=== PATIENT | male | born 1940 | race Caucasian/White ===

== ENCOUNTER 2018-12-05 17:35 | Inpatient (IN) | payer MEDICAID, MEDICARE ==
[2018-12-05] MEDS ORDERED: Sodium Chloride 0.9% 10 ML Syringe FLUSH PRN (19:13)
[2018-12-05] MEDS ORDERED: Piperacillin/Tazobactam 4.5 GM in Sodium Chloride 0.9% 100 ML IV SCH (19:15)
[2018-12-05] MEDS ORDERED: Sodium Chloride 0.9% 250 ML IV ONE (19:15)
[2018-12-05] MEDS ORDERED: Piperacillin/Tazobactam 3.375 GM in Sodium Chloride 0.9% 50 ML IV ONE (19:45)
[2018-12-05 20:25] LABS: ANION GAP 11.5 mmol/L (5-15); CHLORIDE,CL 104 mmol/L (98-115); SODIUM,NA 137 mmol/L (136-145)
[2018-12-06] MEDS ORDERED: Piperacillin/Tazobactam 3.375 GM in Sodium Chloride 0.9% 50 ML IV SCH (04:00)
--- NOTE | 2018-12-06 08:03 | HP ---
12/05/2018 PATIENT NAME: CLEMENT CHATMAN TIME: 9:30 p.m. PATIENT PROFILE: The patient is an 78-year-old gentleman from [place], [place]. He was initially seen in the clinic by Miranda Resendiz RN/[employer], yesterday because of abdominal pain, fever, and chills. The patient came back to see her today. The patient was initially reluctant to do any tests or come into the hospital. However, he agreed to having an abdominal CAT scan being performed. The abdominal CAT scan showed a common bile duct stone and slight dilatation of the duct to 1.1 cm. There was minimal intrahepatic biliary ductal dilatation. The patient also has a left 1.3 cm left renal mass, which had been unchanged from before from the date of 02/2018. In addition, the patient has a 2.6 x 2.6 enhancing soft tissue mass in the base of the cecum, which appears to extend to the overlying anterior abdominal wall musculature. This is suspicious for malignancy. As the patient was running a fever with chills and possibly getting septic, he was strongly advised to come into the hospital and he finally consented to coming in today. PAST MEDICAL HISTORY: The patient's past history includes: 1. Hypertension. 2. Coronary artery disease with stent placement recently last year. 3. Also COPD, bronchospasm, and mild ischemic coronary artery disease and diastolic dysfunction. 4. He also has a history of hypercholesteremia. PHYSICAL EXAMINATION: GENERAL: The patient was admitted. He was alert. He was seen in his room. He remained alert and well oriented. He has slight jaundice noted. VITAL SIGNS: Revealed a blood pressure of 154/69, height 5 feet 4 inches, weight 190 pounds, oxygen saturation is 97%, and respiratory rate was 20. HEENT: The patient's head was normocephalic. Eyes reveal a mild jaundice. ENT, negative. HEART: Stable rhythm. Grade 1/6 systolic murmur in the apex. LUNGS: Clear to percussion and auscultation. ABDOMEN: Soft, somewhat obese, and nontender. No masses are palpable. Femoral pulses are good. EXTREMITIES: Normal. FINAL DIAGNOSES: 1. Suspect acute cholangitis with choledocholithiasis. 2. History of a possible mass of the right colon, question colon malignancy. 3. History of mass of the left kidney, question renal cell carcinoma. 4. History of coronary artery disease, stable. 5. Hypertension, stable. 6. History of ischemic cardiac disease and history of diastolic dysfunction, stable at this time. 7. Hypercholesteremia, stable. PLAN: The plan will be to treat him with IV antibiotics of Zosyn 3.375 g every 6 hours. Clear liquids by mouth. Repeat liver function tests in a.m. and watch carefully for any progression of the liver function tests. Once his infection and cholangitis subsides, he may be a candidate for ERCP or retrieval of the common bile duct stone. /[id number]/MODL
[2018-12-06] MEDS: Piperacillin/Tazobactam/Dext 3.375 GM in Premix Bag 1 BAG IV SCH ×3 (09:50→21:57)
--- NOTE | 2018-12-06 10:35 | PCM.PN ---
- General Info Date of Service: 12/06/18 Functional Status: Reports: Pain Controlled, Tolerating Diet, Ambulating. Denies: New Symptoms - Review of Systems General: Denies: Fever HEENT: Reports: No Symptoms Pulmonary: Reports: No Symptoms Cardiovascular: Reports: No Symptoms Gastrointestinal: Reports: Decreased Appetite. Denies: Abdominal Pain, Diarrhea , Nausea Genitourinary: Denies: Incontinence Musculoskeletal: Reports: No Symptoms Skin: Denies: Jaundice, Pruritis Neurological: Denies: Confusion, Dizziness Psychiatric: Reports: No Symptoms - Patient Data Vitals - Most Recent: Last Vital Signs Temp 97.3 F 12/06/18 07:00 Pulse 57 L 12/06/18 07:00 Resp 16 12/06/18 07:00 BP 140/64 12/06/18 07:00 Pulse Ox 92 L 12/06/18 07:00 Weight - Most Recent: 189 lb 5 oz I&O - Last 24 Hours: Intake & Output 12/05/18 12/06/18 12/06/18 22:59 06:59 14:59 Intake Total 370 175 Balance 370 175 Lab Results Last 24 Hours: Laboratory Results - last 24 hr 12/05/18 12/05/18 Range/Units 19:50 19:50 WBC 5.91 (5.00-10.00) 10^3/uL RBC 4.09 L (4.50-6.00) 10^6/uL Hgb 12.6 L (13.0-17.0) g/dL Hct 37.9 L (40.0-52.0) % MCV 92.7 H (82.0-92.0) fL MCH 30.8 (27.0-31.0) pg MCHC 33.2 (32.0-36.0) g/dL RDW 14.9 H (11.5-14.5) % Plt Count 199 (150-400) 10^3/uL MPV 10.5 H (7.4-10.4) fL Immature Gran % (Auto) 0.2 (0.0-5.0) % Neut % (Auto) 67.5 (50.0-70.0) % Lymph % (Auto) 19.1 L (20.0-40.0) % [place] % (Auto) 11.3 H (2.0-8.0) % Eos % (Auto) 1.4 (1.0-3.0) % Baso % (Auto) 0.5 (0.0-1.0) % Immature Gran # (Auto) 0.01 (0.00-0.50) 10^3/uL Neut # (Auto) 3.99 (2.50-7.00) 10^3/uL Lymph # (Auto) 1.13 (1.00-4.00) 10^3/uL [place] # (Auto) 0.67 (0.10-0.80) 10^3/uL Eos # (Auto) 0.08 L (0.10-0.30) 10^3/uL Baso # (Auto) 0.03 (0.00-0.10) 10^3/uL Sodium 137 (136-145) mmol/L Potassium 4.2 (3.3-5.3) mmol/L Chloride 104 (98-115) mmol/L Carbon Dioxide 25.7 (21.0-32.0) mmol/L Anion Gap 11.5 (5-15) mmol/L BUN 15 (6-25) mg/dL Creatinine 1.08 (0.51-1.17) mg/dL Est Cr Clr Drug Dosing 45.68 mL/min Estimated GFR (MDRD) > 60 mL/min Glucose 96 (75 - 99) mg/dL Calcium 9.1 (8.7-10.3) mg/dL Total Bilirubin 0.8 (0.2-1.0) mg/dL Direct Bilirubin 0.3 H (0.0-0.2) mg/dL Indirect Bilirubin 0.5 mg/dL AST 85 H (15-37) U/L ALT 224 H (12-78) U/L Alkaline Phosphatase 273 H (46-116) IU/L Total Protein 7.3 (6.4-8.2) g/dL Albumin 2.95 L (3.00-4.80) g/dL Globulin 4.35 Albumin/Globulin Ratio 0.67 Med Orders - Current: Current Medications Piperacillin/Tazobactam/ (Dextrose 3.375 gm/ Premix) 50 mls @ 100 mls/hr IV Q6H [facility] Last Admin: 12/06/18 09:50 Dose: 100 mls/hr Sodium Chloride (Saline Flush) 10 ml FLUSH Q8HR PRN PRN Reason: keep vein open Discontinued Medications Piperacillin Sod/Tazobactam (Sod 4.5 gm/ Sodium Chloride) 100 mls @ 200 mls/hr IV Q6H [facility] Last Admin: 12/06/18 00:02 Dose: Not Given Sodium Chloride (Normal Saline) 250 mls @ 50 mls/hr IV DAILY ONE Stop: 12/06/18 00:14 Last Admin: 12/05/18 21:27 Dose: 50 mls/hr Piperacillin Sod/Tazobactam (Sod 3.375 gm/ Sodium Chloride) 50 mls @ 100 mls/ hr IV ONETIME ONE Stop: 12/05/18 20:14 Last Admin: 12/05/18 21:27 Dose: 100 mls/hr Piperacillin Sod/Tazobactam (Sod 3.375 gm/ Sodium Chloride) 50 mls @ 100 mls/ hr IV Q6H [facility] Last Admin: 12/06/18 04:49 Dose: 100 mls/hr - Exam Quality Assessment: No: Supplemental Oxygen General: Alert, Oriented HEENT: No: Scleral Icterus Neck: Supple, No JVD Lungs: Clear to Auscultation, Normal Respiratory Effort Cardiovascular: Regular Rate, Regular Rhythm GI/Abdominal Exam: Other (reduced bowel tones. ). No: Distended (Male) Exam: No Hernia Back Exam: No: CVA Tenderness (L), CVA Tenderness (R) Extremities: No Pedal Edema Peripheral Pulses: 2+: Radial (L), Radial (R) Skin: Dry Neurological: No New Focal Deficit Psy/Mental Status: Alert, Normal Affect, Normal Mood - Problem List Review Problem List Initiated/Reviewed/Updated: Yes - Plan Plan:: History: This 78 year old male was seen by Miranda Resendiz OUTSIDE CUTTER when he came in c/o chills along with hot flashes and felt feverish. Initial presentation was highly suggested of acute cholangitis however he was quite obstinate about being admitted however eventually he did capitulate and came into the hospital. He was started on IV antibiotics. He denied any jaundice N/V/D but did note some urinary frequency along with lower extremity edema he contribute to not taking his Lasix past 48 hours prior. The patient noted that he recently completed a course of antibiotics. He was seen in the clinic on 11/11/18 by Nati Leos PA-C, with generalized abdominal pain. CBC at that time with a mildly increased WBC at 13.3. BMP with creatinine 1.44, GFR 47. Abdominal x-ray was done with nonspecific bowel gas pattern without evidence of obstruction or ileus. He had a prior CT scan done 03/17 which was reviewed noting diverticulosis. The patient was started on Augmentin for question of possible diverticulitis and recommended for a CT if no improvement was noted. The patient completed the course of Augmentin with resolution of his symptoms. In follow-up November 27 with noted resolution of symptoms. Clinic findings demonstrated markedly elevated liver function Alkaline phosphatase- 306, AST- 251, ALT-340, Bilirubin 1.5--all are trending down today Yesterday's concerns were CT of the abdomen which demonstrated dilatation of CBD favoring choledocholithiasis, other concerning signs demonstrated 2.6 x 2.6 cm soft tissue mass (which is malignant in suspect) at the base of his cecum which appears to extend into the overlying right anterior abdominal wall musculature. Primary hospital problems --Rule out acute cholangitis, no jaundice or fever, resolved abdominal pain --Choledocholithiasis with Elevated aminotransferases, trending down, Chronic problems HTN, continue with Coreg, Losartan Norvasc Hydralazine HLD- Holding statins Aortic stenosis, S/P TAVR- on Plavix and ASA CAD- Lifelong DAPT HFpEF, diastolic, ECHO 04/09/1818. Grade 1 LV diastolic dysfunction. EF 60%. Was off diuretic therapy past 48 hours CKD stage 3- Baseline Serum Creatinine 1.4. --Renal mass, concerning for renal cell carcinoma- noted on CT 01/08/18. Follow- up with IR on 04/09/18. Patient has elected for watching area with follow-up CT versus intervention. --soft tissue domicile mass concerning for malignancy, will need outpatient workup Overall plan today With favorable trending liver enzymes and a total bili negative low without fever jaundice or no abdominal pain and stable vital signs we'll continue to trend aminotransferases. Continue with antibiotics. Monitor for jaundice abdominal pain, monitor for fever or any hemodynamic instability, advance diet.
[2018-12-06] MEDS ORDERED: Nitroglycerin 0.4 MG Tab.SL SL PRN (12:44)
[2018-12-06] MEDS ORDERED: Albuterol 8 GM Inhaler INH PRN (12:44)
[2018-12-06] MEDS: hydrALAZINE 50 MG Tab PO SCH ×2 (15:21→21:59)
[2018-12-06] MEDS: Carvedilol 6.25 MG Tab PO SCH (22:00)
[2018-12-07] MEDS: Piperacillin/Tazobactam/Dext 3.375 GM in Premix Bag 1 BAG IV SCH ×2 (05:08→11:34)
[2018-12-07] MEDS: hydrALAZINE 50 MG Tab PO SCH (05:09)
[2018-12-07] MEDS ORDERED: Aspirin 81 MG Tab.EC PO SCH (08:00)
[2018-12-07] MEDS: Carvedilol 6.25 MG Tab PO SCH (08:42)
[2018-12-07] MEDS ORDERED: Furosemide 20 MG Tab PO SCH (09:00)
[2018-12-07] MEDS ORDERED: amLODIPine 5 MG Tab PO SCH (09:00)
[2018-12-07] MEDS ORDERED: Losartan 50 MG Tab PO SCH (09:00)
[2018-12-07] MEDS ORDERED: Clopidogrel 75 MG Tab PO SCH (09:00)
--- NOTE | 2018-12-07 10:49 | PCM.DCSUM1 ---
Discharge Summary - Hospital Course Brief History: This is an 78 year old male who presented to the [facility] with concerns of chills. Had been experiencing hot and cold flashes for the past two days. Was unable to express any other symptoms. Lab work-up was notable for alk phos 306, AST 251, ALT 340, total bilirubin 1.5. CT abd/pelvis showed common bile duct dilatation with filling defect likely representing choledocholith, unchanged 1.3 cm left interpolar renal lesion-likely representing small renal cell carcinoma, and a new 2.6 x 2.6 cm enhancing soft tissue mass in the base of the cecum which appears to extend into the overlying right anterior abdominal wall musculature-concerning for malignancy. He was resistant to hospital admission at first, but did concede and was admitted for IV antibiotics and further monitoring. - Discharge Data Discharge Date: 12/07/18 Discharge Disposition: Home, Self-Care 01 Condition: Stable - Patient Instructions Diet: No Alcoholic Beverages Diet, Other: Low fat, low cholesterol Activity: As Tolerated Driving: May Drive Today Showering/Bathing: May Shower Notify Provider of: Fever, Increased Pain, Nausea and/or Vomiting (abdominal pain, yellowing of the skin or eyes) Other/Special Instructions: I have placed a referral to [facility] for the probable stone in your bile duct. I will place a referral order to [facility] On[facility] regarding the mass at the start of the large intestine. - Discharge Plan *PRESCRIPTION DRUG MONITORING PROGRAM REVIEWED*: Not Applicable *COPY OF PRESCRIPTION DRUG MONITORING REPORT IN PATIENT [place]: Not Applicable Prescriptions/Med Rec: Amoxicillin/Potassium Clav [Augmentin 875-125 Tablet] 1 each PO BID 3 Days #6 tablet Home Medications: Home Meds Aspirin [Halfprin] 81 mg PO BRK 04/29/15 [History] Carvedilol [Coreg] 6.25 mg PO BID 04/29/15 [History] Losartan [Cozaar] 100 mg PO DAILY 04/29/15 [History] Albuterol [Proventil HFA] 2 puff INH QID PRN 02/18/16 [History] Furosemide 20 mg PO DAILY 02/18/16 [History] Amoxicillin 2,000 mg PO DAILY PRN 12/05/18 [History] Clopidogrel Bisulfate [Clopidogrel] 75 mg PO DAILY 12/05/18 [History] Nitroglycerin [Nitrostat] 0.4 mg SL ASDIRECTED PRN MDD 3 12/05/18 [History] amLODIPine [Norvasc] 10 mg PO DAILY 12/05/18 [History] hydrALAZINE [Apresoline] 25 mg PO Q8H 12/05/18 [History] Amoxicillin/Potassium Clav [Augmentin 875-125 Tablet] 1 each PO BID 3 Days #6 tablet 12/07/18 [Rx] Referrals: Jean Paul Cohen MD [Primary Care Provider] - 12/11/18 (Please call the [facility] on Sunday to schedule your follow-up appointment. [phone]. ) - Discharge Summary/Plan Comment DC Time >30 min.: Yes Discharge Summary/Plan Comment: Date of admission: 12/05/18 Date of discharge: 12/07/18 Admitting diagnosis: Primary: Acute cholangitis, elevated LFTs, common bile duct calculus, mass of cecum, fever, fatigue. Secondary: HFpEF, CAD, HTN, S/P TAVR, HLD, CKD stage III, left renal mass ( concern for renal cell carcinoma). Final diagnosis: Primary: Acute cholangitis, resolving; Elevated LFTs, resolving; Choledocholithiasis, stable; Mass of cecum; Fever, resolved; Fatigue, improving. Secondary: HFpEF, CAD, HTN, S/P TAVR, HLD, CKD stage III, left renal mass ( concern for renal cell carcinoma). Procedures performed: None Hospital Course: The patient was afebrile and without abdominal pain during his hospital course. He remained hemodynamically stable. No nausea/vomiting/jaundice. No leukocytosis. He was given IV zosyn 3.375 gm IV every 6 hours with improvement in LFTs. Reviewed CT abd/pelvis report with patient and . They are aware of the left renal mass from prior CT and patient had decided to just watch this. Has not been formally evaluated by oncology for this per review of Epic chart. Discussed findings of new cecum mass and the concern for malignancy. Patient agreeable to proceed with referral to oncology for this. He is also agreeable to seeing GI for his probable choledocholithiasis. Discharge labs: Total bilirubin 0.7 AST 29 ALT 125 Alk phos 190 Albumin 2.67 ESR 60 Blood cultures x 2-negative (preliminary) New medications at discharge: -Augmentin 875 mg po BID x 3 days Changes to home medication on discharge: -Hold lipitor Home medications on discharge: -Hydralazine 25 mg po every 8 hours -Amlodipine 10 mg po daily -Nitroglycerin 0.4 mg SL PRN -Plavix 75 mg po daily -Aspirin 81 mg po daily -Furosemide 20 mg po daily -Carvedilol 6.25 mg po BID -Losartan 100 mg po daily -Amoxicillin 2000 mg po PRN prior to dental procedures -Albuterol HFA 2 puffs inh QID PRN Condition, Treatment, and Final Disposition: The patient is in stable condition at the time of discharge. He will be discharged home on oral antibiotics with close follow-up in the clinic on 12/11/[address] Stephania Cohen. Considerations at follow-up: Orders placed in [facility] for GI and oncology referral on discharge. Unable to obtain hepatitis panel, HIV, iron/tibc with discharge blood draw, so will obtain these at follow-up; orders placed. Will place repeat LFT order as well. - General Info Date of Service: 12/07/18 Functional Status: Reports: Pain Controlled, Tolerating Diet, Ambulating, Urinating. Denies: New Symptoms - Review of Systems General: Reports: Fatigue, Malaise. Denies: Fever, Weakness, Chills HEENT: Reports: Glasses, Other (chronic right eye erythema/drainage-sees general lot attendant in [place] for this and has Cipro drops to use.). Denies: Eye Pain, Headaches Pulmonary: Denies: Shortness of Breath Cardiovascular: Reports: Edema. Denies: Chest Pain Gastrointestinal: Denies: Abdominal Pain, Constipation, Decreased Appetite, Diarrhea, Nausea, Vomiting Genitourinary: Reports: No Symptoms Neurological: Denies: Dizziness, Headache Psychiatric: Reports: No Symptoms - Patient Data Vitals - Most Recent: Last Vital Signs Temp 98.0 F 12/07/18 05:48 Pulse 68 12/07/18 08:42 Resp 20 12/07/18 05:48 BP 141/69 H 12/07/18 08:42 Pulse Ox 93 L 12/07/18 05:48 Weight - Most Recent: 190 lb 1 oz I&O - Last 24 hours: Intake & Output 12/06/18 12/07/18 12/07/18 22:59 06:59 14:59 Intake Total 170 550 Balance 170 550 Lab Results - Last 24 hrs: Laboratory Results - last 24 hr 12/06/18 12/07/18 12/07/18 Range/Units 13:05 08:08 08:08 ESR 52 H 60 H (0-15) mm/hr Total Bilirubin 0.7 (0.2-1.0) mg/dL Direct Bilirubin 0.2 (0.0-0.2) mg/dL Indirect Bilirubin 0.5 mg/dL AST 29 (15-37) U/L ALT 125 H (12-78) U/L Alkaline Phosphatase 190 H (46-116) IU/L Total Protein 6.9 (6.4-8.2) g/dL Albumin 2.67 L (3.00-4.80) g/dL Globulin 4.23 Albumin/Globulin Ratio 0.63 ONESIMO Results - Last 24 hrs: Microbiology 12/05/18 21:10 Aerobic Blood Culture - Preliminary Blood NO GROWTH AFTER 1 DAY Anaerobic Blood Culture - Preliminary NO GROWTH AFTER 1 DAY 12/05/18 19:50 Aerobic Blood Culture - Preliminary Blood NO GROWTH AFTER 1 DAY Anaerobic Blood Culture - Preliminary NO GROWTH AFTER 1 DAY Med Orders - Current: Current Medications Albuterol (Ventolin Hfa) 0 gm INH QID PRN PRN Reason: Shortness of Breath Amlodipine Besylate (Norvasc) 10 mg PO DAILY [facility] Last Admin: 12/07/18 08:41 Dose: 10 mg Aspirin (Halfprin) 81 mg PO BRK [facility] Last Admin: 12/07/18 08:42 Dose: 81 mg Carvedilol (Coreg) 6.25 mg PO BID [facility] Last Admin: 12/07/18 08:42 Dose: 6.25 mg Clopidogrel Bisulfate (Plavix) 75 mg PO DAILY [facility] Last Admin: 12/07/18 08:41 Dose: 75 mg Furosemide (Lasix) 20 mg PO DAILY [facility] Last Admin: 12/07/18 08:42 Dose: 20 mg Hydralazine HCl (Apresoline) 25 mg PO Q8HR [facility] Last Admin: 12/07/18 05:09 Dose: 25 mg Piperacillin/Tazobactam/ (Dextrose 3.375 gm/ Premix) 50 mls @ 100 mls/hr IV Q6H [facility] Last Admin: 12/07/18 05:08 Dose: 100 mls/hr Losartan Potassium (Cozaar) 100 mg PO DAILY [facility] Last Admin: 12/07/18 08:41 Dose: 100 mg Nitroglycerin (Nitrostat) 0.4 mg SL ASDIRECTED PRN PRN Reason: Chest Pain Sodium Chloride (Saline Flush) 10 ml FLUSH Q8HR PRN PRN Reason: keep vein open Discontinued Medications Piperacillin Sod/Tazobactam (Sod 4.5 gm/ Sodium Chloride) 100 mls @ 200 mls/hr IV Q6H [facility] Last Admin: 12/06/18 00:02 Dose: Not Given Sodium Chloride (Normal Saline) 250 mls @ 50 mls/hr IV DAILY ONE Stop: 12/06/18 00:14 Last Admin: 12/05/18 21:27 Dose: 50 mls/hr Piperacillin Sod/Tazobactam (Sod 3.375 gm/ Sodium Chloride) 50 mls @ 100 mls/ hr IV ONETIME ONE Stop: 12/05/18 20:14 Last Admin: 12/05/18 21:27 Dose: 100 mls/hr Piperacillin Sod/Tazobactam (Sod 3.375 gm/ Sodium Chloride) 50 mls @ 100 mls/ hr IV Q6H [facility] Last Admin: 12/06/18 04:49 Dose: 100 mls/hr - Exam Quality Assessment: Denies: Supplemental Oxygen, Urine Catheter General: Reports: Alert, Oriented, Cooperative, No Acute Distress, Other (Obese) HEENT: Reports: Pupils Equal, Other (conjunctival erythema present to right with scant serous drainage). Denies: Scleral Icterus Lungs: Reports: Clear to Auscultation, Normal Respiratory Effort Cardiovascular: Reports: Regular Rate, Regular Rhythm, No Murmurs GI/Abdominal Exam: Normal Bowel Sounds, Non-Tender, No Distention, Other ( abdomen large, round, firm). No: Soft, Rigid Extremities: Pedal Edema (1+ pitting edema to BLE) Skin: Reports: Warm, Dry, Intact, Other (no jaundice) Neurological: Reports: Normal Speech Psy/Mental Status: Reports: Alert, Normal Affect, Normal Mood
[2018-12-07 13:00] VITALS: BP 120/64; PULSE 60
== END 2018-12-07 14:10 | disposition home or self-care (01) | DRG 375 ==
LOC: KA.MS 17:35
PROVIDERS: ADMIT Family Medicine; ATTEND Family Medicine
DX: C18.0 Malignant neoplasm of cecum (principal); K80.32 Calculus of bile duct with acute cholangitis without obstruction; I50.32 Chronic diastolic (congestive) heart failure; C64.9 Malignant neoplasm of unspecified kidney, except renal pelvis; I13.0 Hypertensive heart and chronic kidney disease with heart failure and stage 1 through stage 4 chronic kidney disease, or unspecified chronic kidney disease; I25.10 Atherosclerotic heart disease of native coronary artery without angina pectoris; J44.9 Chronic obstructive pulmonary disease, unspecified; E78.00 Pure hypercholesterolemia, unspecified; N18.3 Chronic kidney disease, stage 3 (moderate); Z79.82 Long term (current) use of aspirin; Z95.2 Presence of prosthetic heart valve; Z79.899 Other long term (current) drug therapy; Z95.5 Presence of coronary angioplasty implant and graft
CPT/HCPCS: 36415; 80048; 80076; 85025; 85651; 87040; A9270-GY; J2543; J7050

== ENCOUNTER 2021-11-21 18:16 | Inpatient (IN) | payer MEDICARE, MEDICAID ==
[2021-11-21] MEDS ORDERED: Sodium Chloride 0.9% 10 ML Syringe FLUSH PRN (18:30)
[2021-11-21 19:06] LABS: ANION GAP 15.7 mmol/L (5-15); CHLORIDE,CL 104 mmol/L (98-107); SODIUM,NA 141 mmol/L (136-145)
[2021-11-21] MEDS ORDERED: Acetaminophen 500 MG Tab PO ONE (19:11)
[2021-11-21 19:15] LABS: ESTIMATED GFR 52 mL/min (>=60)
[2021-11-21 20:01] LABS: CORONAVIRUS COVID-19 NAA NEGATIVE (NEGATIVE)
[2021-11-21] MEDS ORDERED: Piperacillin/Tazobactam 4.5 GM in Sodium Chloride 0.9% 100 ML IV ONE (20:31)
[2021-11-21] MEDS ORDERED: Sodium Chloride 0.9% 100 ML IV SCH (21:00)
[2021-11-21] MEDS ORDERED: Sodium Chloride 0.9% 1,000 ML IV SCH (21:45)
[2021-11-21] MEDS ORDERED: Acetaminophen 500 MG Tab PO PRN (22:09)
[2021-11-21] MEDS ORDERED: Tamsulosin 0.4 MG Cap.ER PO ONE (22:17)
[2021-11-21] MEDS: Sodium Chloride 0.9% 1,000 ML IV SCH (22:34)
[2021-11-22] MEDS ORDERED: Piperacillin/Tazobactam 3.375 GM in Sodium Chloride 0.9% 100 ML IV SCH (05:00)
[2021-11-22] MEDS: Piperacillin/Tazobactam/Dext 3.375 GM in Premix Bag 1 BAG IV SCH ×3 (05:45→22:15)
[2021-11-22] MEDS: Sodium Chloride 0.9% 1,000 ML IV SCH (09:15)
[2021-11-22] MEDS ORDERED: Losartan 50 MG Tab PO SCH (09:30)
[2021-11-22] MEDS ORDERED: hydrALAZINE 50 MG Tab PO SCH (09:30)
[2021-11-22] MEDS ORDERED: Carboxymethylcellulose Sodium 0.5% Ophth Soln 15 ML Bottle EYEBOTH PRN (09:56)
[2021-11-22] MEDS: amLODIPine 5 MG Tab PO SCH (10:09)
[2021-11-22 10:10] LABS: ANION GAP 13.3 mmol/L (5-15)
[2021-11-22] MEDS: Aspirin 81 MG Tab.EC PO SCH (10:14)
[2021-11-22] MEDS: atorvaSTATin 10 MG Tab PO SCH (10:14)
[2021-11-22] MEDS: Carvedilol 6.25 MG Tab PO SCH ×2 (10:14→22:21)
[2021-11-22] MEDS: Fluticasone NASAL Spray 16 GM Bottle NAS SCH ×2 (10:15→22:21)
[2021-11-22] MEDS ORDERED: Enoxaparin 30 MG/0.3 ML Syringe SUBCUT SCH (12:00)
[2021-11-22] MEDS: Carboxymethylcellulose Sodium 0.5% Ophth Soln 15 ML Bottle EYEBOTH PRN ×2 (18:14→22:22)
[2021-11-22] MEDS: Tamsulosin 0.4 MG Cap.ER PO SCH (22:21)
[2021-11-22] MEDS ORDERED: Sodium Chloride 0.9% 100 ML IV SCH (23:45)
[2021-11-23] MEDS: Piperacillin/Tazobactam/Dext 3.375 GM in Premix Bag 1 BAG IV SCH ×3 (05:24→20:54)
[2021-11-23] MEDS: Pantoprazole 20 MG Tab, Delayed Release PO SCH ×2 (06:12→06:29)
[2021-11-23] MEDS: Fluticasone NASAL Spray 16 GM Bottle NAS SCH ×2 (08:09→20:52)
[2021-11-23] MEDS: atorvaSTATin 10 MG Tab PO SCH (08:09)
[2021-11-23] MEDS: Carvedilol 6.25 MG Tab PO SCH ×2 (08:09→20:51)
[2021-11-23] MEDS: Aspirin 81 MG Tab.EC PO SCH (08:09)
[2021-11-23] MEDS: Carboxymethylcellulose Sodium 0.5% Ophth Soln 15 ML Bottle EYEBOTH PRN ×2 (08:13→20:53)
[2021-11-23] MEDS ORDERED: Losartan 50 MG Tab PO SCH (11:00)
[2021-11-23] MEDS: Losartan 50 MG Tab PO SCH (12:36)
[2021-11-23] MEDS: Enoxaparin 40 MG/0.4 ML Syringe SUBCUT SCH (12:36)
[2021-11-23] MEDS: Tamsulosin 0.4 MG Cap.ER PO SCH (20:51)
[2021-11-24] MEDS: Piperacillin/Tazobactam/Dext 3.375 GM in Premix Bag 1 BAG IV SCH ×2 (06:04→12:46)
[2021-11-24] MEDS: Pantoprazole 20 MG Tab, Delayed Release PO SCH ×2 (06:04→06:34)
[2021-11-24 07:57] LABS: ANION GAP 11.7 mmol/L (5-15)
[2021-11-24] MEDS: Carboxymethylcellulose Sodium 0.5% Ophth Soln 15 ML Bottle EYEBOTH PRN (09:07)
[2021-11-24] MEDS: atorvaSTATin 10 MG Tab PO SCH (09:07)
[2021-11-24] MEDS: Carvedilol 6.25 MG Tab PO SCH (09:07)
[2021-11-24] MEDS: Fluticasone NASAL Spray 16 GM Bottle NAS SCH (09:07)
[2021-11-24] MEDS: Aspirin 81 MG Tab.EC PO SCH (09:08)
[2021-11-24] MEDS: amLODIPine 5 MG Tab PO SCH (09:08)
[2021-11-24] MEDS: Losartan 50 MG Tab PO SCH (09:08)
[2021-11-24 11:04] VITALS: BP 143/73; PULSE 67
[2021-11-24] MEDS: Enoxaparin 40 MG/0.4 ML Syringe SUBCUT SCH (11:43)
[2021-11-24] MEDS ORDERED: Cefdinir 300 MG Cap PO SCH (21:00)
== END 2021-11-24 12:55 | disposition home or self-care (01) | DRG 872 ==
LOC: KA.ED 18:16 → KA.MS 20:33 → OBSVTOIN 11-22 11:53
PROVIDERS: ADMIT Family Medicine; ATTEND Nurse Practitioner Family
DX: A41.9 Sepsis, unspecified organism (principal); R50.9 Fever, unspecified; D72.828 Other elevated white blood cell count; R79.82 Elevated C-reactive protein (CRP); A40.1 Sepsis due to streptococcus, group B; I25.10 Atherosclerotic heart disease of native coronary artery without angina pectoris; I50.32 Chronic diastolic (congestive) heart failure; I13.0 Hypertensive heart and chronic kidney disease with heart failure and stage 1 through stage 4 chronic kidney disease, or unspecified chronic kidney disease; R09.02 Hypoxemia; I25.119 Atherosclerotic heart disease of native coronary artery with unspecified angina pectoris; E78.2 Mixed hyperlipidemia; K80.50 Calculus of bile duct without cholangitis or cholecystitis without obstruction; E66.9 Obesity, unspecified; N28.89 Other specified disorders of kidney and ureter; F41.9 Anxiety disorder, unspecified; H04.123 Dry eye syndrome of bilateral lacrimal glands; N18.30 Chronic kidney disease, stage 3 unspecified; Z91.013 Allergy to seafood; K25.9 Gastric ulcer, unspecified as acute or chronic, without hemorrhage or perforation; Z20.822 Contact with and (suspected) exposure to COVID-19; I87.8 Other specified disorders of veins; R35.0 Frequency of micturition; H04.129 Dry eye syndrome of unspecified lacrimal gland; K09.8 Other cysts of oral region, not elsewhere classified; Z79.82 Long term (current) use of aspirin; Z68.36 Body mass index [BMI] 36.0-36.9, adult; Z79.899 Other long term (current) drug therapy; Z79.2 Long term (current) use of antibiotics; Z79.1 Long term (current) use of non-steroidal anti-inflammatories (NSAID); Z79.01 Long term (current) use of anticoagulants; Z85.528 Personal history of other malignant neoplasm of kidney; Z95.2 Presence of prosthetic heart valve; Z98.42 Cataract extraction status, left eye; Z98.41 Cataract extraction status, right eye; Z97.3 Presence of spectacles and contact lenses; Z95.5 Presence of coronary angioplasty implant and graft; Z98.890 Other specified postprocedural states; Z87.891 Personal history of nicotine dependence
CPT/HCPCS: 0240U; 36415; 71045; 80053; 81001; 83605; 83880; 84145; 85025; 86140; 87040; 87086; 87186; 96365; 96374; 96375; 99284; 99285-25; A9270-GY; G0378; J1650; J2543; J3490; J7030